=== PATIENT | male | born 1960 | race Caucasian/White ===

== ENCOUNTER 2019-04-23 09:58 | Emergency (ER) | payer BC ==
--- NOTE | 2019-04-23 10:45 | CT ---
CT BRAIN NONCONTRAST: DATE: 04/23/2019 HISTORY: 58-year-old male status post syncope FINDINGS: There is no evidence of acute intra-axial or extra-axial hemorrhage. There is no midline shift or any other mass effect. There is no extra-axial fluid collection. There is no evidence of obstructive hydrocephalus. Calvarium is intact. There are bilaterally symmetrical basal ganglia calcifications in the globus pallidus. IMPRESSION: No acute intracranial findings.
--- NOTE | 2019-04-23 10:46 | RAD ---
RADIOGRAPH CHEST 2 VIEWS: DATE: 04/23/2019 HISTORY: 58-year-old male status post syncope FINDINGS: There is no airspace density, pulmonary edema, pleural effusion, pneumothorax, or cardiomegaly. IMPRESSION: No acute cardiopulmonary findings.
[2019-04-23 11:10] LABS: #Basophils 0.1 thou/uL (0.0-0.2); #Eosinphils 0.1 thou/uL (0.0-0.7); #Lymphocytes 1.8 thou/uL (1.20-3.40); #Monocytes 0.6 thou/uL (0.11-0.59); #Neutrophils 7.1 thou/uL (1.40-6.50); %Eosinophils 0.5 % (0.0-10.0); %Lymphocytes 18.5 % (21.0-51.0); %Monocytes 5.9 % (0.0-10.0); %Neutrophils 74.2 % (42.0-75.0); Hemoglobin 14.3 g/dL (14.0-18.0); Mean Corpuscular HGB CONC 32.9 g/dL (32.0-36.0); Mean Corpuscular Hemoglobin 28.7 pg (27.0-31.0); Mean Corpuscular Volume 87.2 fL (78.0-98.0); Mean Platelet Volume 7.1 fL (7.4-10.4); Platelet Count 226 thou/uL (130-400); RBC Distribution Width 11.5 % (11.5-14.5); White Blood Cell (WBC) Count 9.5 thou/uL (4.8-10.8)
[2019-04-23 11:25] LABS: ALT (SGPT) 25 U/L (8-55); AST (SGOT) 20 U/L (5-34); Alkaline Phosphatase 76 U/L (40-110); Anion Gap 19 mmol/L (10-20); BUN (Urea Nitrogen) 15 mg/dL (8.4-25.7); Bilirubin, Total 0.5 mg/dL (0.2-1.2); Calc. Creatinine Clearance 0 mL/min (70-130); Calcium 9.2 mg/dL (7.8-10.44); Carbon Dioxide 25 mmol/L (22-29); Chloride 99 mmol/L (98-107); Estimated GFR-MDRD 74; Globulin 2.9 g/dL (2.4-3.5); Glucose 231 mg/dL (70-105); Potassium 3.8 mmol/L (3.5-5.1); Protein, Total 6.9 g/dL (6.0-8.3); Sodium 139 mmol/L (136-145)
[2019-04-23] MEDS ORDERED: Enoxaparin Sodium 40 MG/0.4 ML SYRINGE ONE (12:41)
[2019-04-23] MEDS ORDERED: Enoxaparin Sodium 80 MG/0.8 ML SYRINGE ONE (12:41)
--- NOTE | 2019-04-23 12:59 | CT ---
CTA CHEST WITH CONTRAST: Multiple axial tomograms obtained with multiplanar reconstruction and 3D postprocessing according to angio protocol. INDICATION: Syncope. Chest pain. Elevated D-Dimer. FINDINGS: There is motion artifact degrading the study. Pulmonary artery opacification is also suboptimal for t he peripheral pulmonary arteries. There is a linear filling defect seen in the interlobar pulmonary artery on the right which is suspic ious for a small linear thrombus. No other evidence of pulmonary artery filling defect to the segmental level. The thoracic aorta is normal caliber. The lungs appear clear. No infiltrate or effusion. Mediastinum unremarkable. Thoracic aorta unremarkable. IMPRESSION: Evidence of a small linear embolus in the right interlobar pulmonary artery. Findings relayed to Dr. Brar at time of dictation. CODE CR. POS: [facility]
== END 2019-04-23 13:30 | disposition short-term general hospital (02) ==
LOC: MADERS 09:58
DX: I26.99 Other pulmonary embolism without acute cor pulmonale (principal); R55 Syncope and collapse; I10 Essential (primary) hypertension; K21.9 Gastro-esophageal reflux disease without esophagitis; E11.9 Type 2 diabetes mellitus without complications
CPT/HCPCS: 70450; 71046; 71275; 80053; 83880; 84484; 85025; 85379; 93005; 94760; 96372; J1650